=== PATIENT | male | born 1980 | race Caucasian/White ===

== ENCOUNTER 2024-03-08 18:18 | Emergency (ER) | payer OTHER ==
[2024-03-08 18:26] VITALS: RESP 18; TEMP 99.6; BMI 32.5
[2024-03-08] MEDS ORDERED: KETOROLAC TROMETHAMINE 30 MG/1 ML VIAL ONE (19:55)
[2024-03-08] MEDS: KETOROLAC TROMETHAMINE 30 MG/1 ML VIAL IVPUSH ONE (20:17)
[2024-03-08 20:21] LABS: BASO % 0.4 % (0-2.0); EOS % 0.2 % (0-4.5); HEMATOCRIT 47.3 % (35.4-49); HEMOGLOBIN 16.2 GM/dL (11.7-16.9); LYMPH % 12.4 % (8-40); MCH 27.6 pg (25.7-33.7); MCHC 34.2 g/dl (32.0-35.9); MEAN CELL VOLUME 80.7 fl (80-96); MEAN PLT VOLUME 8.9 fl (7.5-11.1); PLATELET COUNT 209 10^3/uL (134-434); RBC 5.86 M/mm3 (4.00-5.60); WHITE BLOOD COUNT 13.8 K/mm3 (4.0-10.0)
[2024-03-08 20:22] LABS: EPI CELLS 1 /uL (0-25.1); HYALINE CASTS 0 /uL (0-3.1); PH,URINE 5.5 (5.0-8.0); URINE APPEARANCE CLEAR; URINE BACTERIA 1 /uL (0-1359); URINE BILIRUBIN NEGATIVE (NEGATIVE); URINE COLOR YELLOW; URINE GLUCOSE (UA) NEGATIVE (NEGATIVE); URINE KETONE NEGATIVE (NEGATIVE); URINE LEUK ESTERASE NEGATIVE (NEGATIVE); URINE NITRITE NEGATIVE (NEGATIVE); URINE PROTEIN 1+ (NEGATIVE); URINE RBC 53 /uL (0-23.9); URINE UROBILINOGEN 0.2 mg/dL (0.2-1.0); URINE WBC 2 /uL (0-25.8)
[2024-03-08 20:47] LABS: POTASSIUM 4.2 mmol/L (3.5-5.1)
[2024-03-08 20:49] LABS: CALCIUM 9.9 mg/dL (8.5-10.1)
[2024-03-08 20:50] LABS: ALBUMIN 4.3 g/dl (3.4-5.0); BLOOD UREA NITROGEN 15.6 mg/dL (7-18)
[2024-03-08 20:53] LABS: CREATININE 1.4 mg/dL (0.55-1.3)
[2024-03-08 20:54] LABS: BILIRUBIN,TOTAL 1.3 mg/dL (0.2-1); TOT PROT 7.8 g/dl (6.4-8.2)
[2024-03-08 21:50] LABS: HIV INTERPRETATION NEGATIVE (NEGATIVE)
[2024-03-08 22:10] VITALS: BP 132/91; PULSE 78
== END 2024-03-09 00:46 | disposition home or self-care (01) ==
LOC: JER 18:18
PROC: 3E0333Z Introduction of Anti-inflammatory into Peripheral Vein, Percutaneous Approach (ICD-10-PCS; principal; 2024-03-08)
DX: K57.32 Diverticulitis of large intestine without perforation or abscess without bleeding (principal); R10.32 Left lower quadrant pain; R10.33 Periumbilical pain
CPT/HCPCS: 36415; 74177-TC; 80053; 81003; 83605; 83690; 85025; 86803; 87086; 87389; 99285-25; Q9967